=== PATIENT | male | born 1950 | race Caucasian/White ===

== ENCOUNTER 2018-03-24 20:54 | Observation (INO) ==
[2018-03-24 23:20] LABS: Basophils # 0.1 10*3/uL (0.0-0.2); Basophils % 0.7 % (0.0-0.8); Eosinophils # 0.4 10*3/uL (0.0-0.87); Eosinophils % 3.6 % (0.00-10.9); Hematocrit 38.1 VOL% (42.0-52.0); Immature Granulocytes % 0.2 %; Immature Granulocytes Absolute 0.03 #; Lymphocytes # 4.7 10*3/uL (1.4-4.0); Lymphocytes % 38.5 % (21.2-54.2); Mean Corpuscular HGB Conc 34.1 GM/DL (32-36); Mean Corpuscular Hemoglobin 31 PG (27-34); Mean Corpuscular Volume 91.4 FL (87-102); Mean Platelet Volume 12.1 FL (9.6-12.0); Monocytes # 1.3 10*3/uL (0.11-0.8); Monocytes % 10.5 % (1.7-12.7); Neutrophils # 5.7 10*3/uL (1.4-7.4); Neutrophils % 46.5 % (38.7-73.9); Platelet Count 194 T/CUMM (130-400); Red Blood Count 4.17 MC/CUMM (3.8-5.5); Red Cell Distribution Width 12.6 % (9.3-17.3); White Blood Count 12.2 T/CUMM (4-12)
[2018-03-24] MEDS ORDERED: SODIUM CHLORIDE 0.9% 1,000 ML IV STA (23:40)
[2018-03-24] MEDS ORDERED: ASPIRIN 325 MG TABLET PO STA (23:40)
[2018-03-25 00:02] LABS: Alanine Aminotransferase 33 U/L (16-61); Albumin 3.7 G/DL (3.4-5.0); Alkaline Phosphatase 52 U/L (45-117); Aspartate Amino Transferase 20 U/L (0-37); Bilirubin,Total < 0.39 MG/DL (0.2-1.0); Blood Urea Nitrogen 18 MG/DL (7-18); Calcium 8.7 MG/DL (8.5-10.1); Glucose 176 MG/DL (74-106); Osmolality,Calculated 282.5 MOS/KG (273-304); Potassium 3.5 MMOL/L (3.5-5.1); Sodium 139 MMOL/L (136-145); Total Protein 7.9 G/DL (6.4-8.3); Troponin I Only < 0.015 NG/ML (0.00-0.045)
[2018-03-25 00:30] LABS: Apearance,Urine CLEAR (Clear); Bilirubin,Urine Negative (Negative); Blood, Urine Negative (Negative); Glucose,Urine (UA) Negative (Negative); Ketones,Urine 5 mg/dL (Negative); Mucus,Urine Occasional /LPF (Occasional); Nitrite,Urine Negative (Negative); Protein,Urine Negative; RBC,Urine 1 /HPF (0-4); Squamous Epithelial Cell,Urine Occasional /HPF (0-10); Urine Color Yellow (Yellow); Urine Specific Gravity 1.025 (1.001-1.035); Urine Urobilinogen < 2.0 EU/DL (0.2-1.0); WBC,Urine 1 /HPF (0-6)
[2018-03-25 00:46] LABS: Barbiturates Screen,Urine Negative (Negative); Benzodiazepines Screen,Urine Negative (Negative); Cannabinoid Screen,Urine Negative (Negative); Opiate Screen,Urine Negative (Negative); Phencyclidine Screen,Urine Negative (Negative)
[2018-03-25 02:59] LABS: Basophils # 0.1 10*3/uL (0.0-0.2); Basophils % 0.7 % (0.0-0.8); Eosinophils # 0.4 10*3/uL (0.0-0.87); Eosinophils % 3.7 % (0.00-10.9); Hematocrit 36.1 VOL% (42.0-52.0); Hemoglobin 12.6 GM/DL (14.0-18.0); Immature Granulocytes % 0.2 %; Immature Granulocytes Absolute 0.02 #; Lymphocytes # 4.2 10*3/uL (1.4-4.0); Lymphocytes % 40.6 % (21.2-54.2); Mean Corpuscular HGB Conc 34.9 GM/DL (32-36); Mean Corpuscular Hemoglobin 32 PG (27-34); Mean Corpuscular Volume 90.7 FL (87-102); Mean Platelet Volume 11.2 FL (9.6-12.0); Monocytes # 1.1 10*3/uL (0.11-0.8); Monocytes % 10.4 % (1.7-12.7); Neutrophils # 4.5 10*3/uL (1.4-7.4); Neutrophils % 44.4 % (38.7-73.9); Platelet Count 177 T/CUMM (130-400); Red Blood Count 3.98 MC/CUMM (3.8-5.5); Red Cell Distribution Width 12.8 % (9.3-17.3); White Blood Count 10.2 T/CUMM (4-12)
[2018-03-25 03:24] LABS: Calcium 8.9 MG/DL (8.5-10.1); Osmolality,Calculated 284.3 MOS/KG (273-304); Potassium 3.5 MMOL/L (3.5-5.1)
[2018-03-25] MEDS: SODIUM CHLORIDE 0.9% 1,000 ML IV SCH (03:43)
[2018-03-25] MEDS ORDERED: VERAPAMIL SR 240 MG TABLET PO SCH (09:00)
[2018-03-25] MEDS: LISINOPRIL 20 MG TABLET PO SCH (09:09)
[2018-03-25] MEDS: ENOXAPARIN 40 MG/0.4 ML SYRINGE SUBCUT SCH (09:09)
[2018-03-25] MEDS: ASPIRIN EC 81 MG TABLET PO SCH (09:09)
[2018-03-25] MEDS: PRAVASTATIN 20 MG TABLET PO SCH (09:09)
[2018-03-26] MEDS: SODIUM CHLORIDE 0.9% 1,000 ML IV SCH (05:51)
[2018-03-26] MEDS: ASPIRIN EC 81 MG TABLET PO SCH (09:12)
[2018-03-26] MEDS: ENOXAPARIN 40 MG/0.4 ML SYRINGE SUBCUT SCH (09:12)
[2018-03-26] MEDS: PRAVASTATIN 20 MG TABLET PO SCH (09:12)
[2018-03-26] MEDS: LISINOPRIL 20 MG TABLET PO SCH (09:12)
[2018-03-27 08:26] VITALS: BP 167/89
[2018-03-27] MEDS: ASPIRIN EC 81 MG TABLET PO SCH (09:14)
[2018-03-27] MEDS: PRAVASTATIN 20 MG TABLET PO SCH (09:14)
[2018-03-27] MEDS: LISINOPRIL 20 MG TABLET PO SCH (09:14)
[2018-03-27] MEDS: ENOXAPARIN 40 MG/0.4 ML SYRINGE SUBCUT SCH (09:15)
[2018-03-27] MEDS: SODIUM CHLORIDE 0.9% 1,000 ML IV SCH (09:15)
== END 2018-03-27 11:08 | disposition home or self-care (01) ==
LOC: N.EDINP 20:54 → N.ED 20:54 → N.TELES 03-25 03:00